=== PATIENT | female | born 1950 | race Caucasian/White ===

== ENCOUNTER → 2016-11-17 | Outpatient (CLI) | payer MEDICARE, OTHER ==
[~2016-11-17] MED LIST: CALC-652 PO; CITA-51 PO; CLOP75TA19 PO; LANS15CA9 PO; MULT-806 PO; [UNRECOGNIZED DRUG - CODE] PO; [UNRECOGNIZED DRUG - CODE] PO
== END ==
LOC: WC.BC 14:52
DX: Z12.31 Encounter for screening mammogram for malignant neoplasm of breast (principal); N64.59 Other signs and symptoms in breast; Z80.3 Family history of malignant neoplasm of breast
CPT/HCPCS: 77063; G0202

== ENCOUNTER 2017-05-21 09:10 | Inpatient (IN) ==
[~2017-05-21 09:10] MED LIST changes: +ACETAMINOPHEN 500 MG TABLET PO ONE; -CALC-652 PO; -CITA-51 PO; -CLOP75TA19 PO; +DEXAMETHASONE 4 MG/ML INJECTION IVP ONE; +EPINEPHrine PF 0.25 MG, BUPIVACAINE 0.25% PF 30 ML, MORPHINE SULFATE 15 MG, KETOROLAC I... OPSITE ONE; +FAMOTIDINE PB 20 MG/50 ML BAG IV ONE; -LANS15CA9 PO; +LIDOCAINE 1% (10mg/ml) 2mL INJ PF SDV ID ONE; +MELOXICAM 15 MG TABLET PO ONE; +METOCLOPRAMIDE 10mg/2ml INJECTION IVP ONE; -MULT-806 PO; +NOZIN NASAL SWAB NAS ONE; +ONDANSETRON 4 MG/2 ML INJECTION IVP ONE; +TRANEXAMIC ACID 1,000 MG in NS 100 ML IV ONE; -[UNRECOGNIZED DRUG - CODE] PO; -[UNRECOGNIZED DRUG - CODE] PO
[2017-05-21 09:35] VITALS: BMI 36.1
[2017-05-21] MEDS: LR 1,000 ML IV SCH ×2 (09:54→12:32)
--- NOTE | 2017-05-21 10:47 | Anesthesia Preoperative Report ---
Anesthesia Preoperative Record - Date and Time Date: 05/21/17 Preoperative Diagnosis: LT TKA M17.12 Proposed Procedure: Left TKA NPO Since Date: 05/20/17 NPO Since Time: 22:30 Allergies/Adverse Reactions: Allergies Allergy/AdvReac Type Severity Reaction Status Date / Time No Known Allergies Allergy Unverified 05/21/17 09:35 - Vital Signs Vital Signs: Temperature 97.8 F 05/21/17 09:33 Pulse Rate 66 05/21/17 09:45 Respiratory Rate 16 05/21/17 09:33 Blood Pressure 155/77 H 05/21/17 09:33 Pulse Oximetry 96 05/21/17 09:33 Height and Weight: Height 5 ft 6.5 in Weight 103.3 kg Body Mass Index 36.1 - Medications Inpatient Medications: Current Medications Lactated Ringer's (Lactated Ringers) 1,000 mls @ 50 mls/hr IV .Q20H DONALDO Last Admin: 05/21/17 09:54 Dose: 50 mls/hr Sodium Chloride (Iv Flush) 10 - 80 ml IV PRN PRN PRN Reason: Flushing Home Medications: Home Medications Medication Instructions Recorded Confirmed Type Azithromycin [Zithromax] 250 mg PO DAILY #0 03/12/11 05/21/17 History Clopidogrel Bisulfate [Plavix] 75 mg PO DAILY #0 03/12/11 05/21/17 History Levothyroxine Sodium 137 mcg PO HS #0 03/12/11 05/21/17 History Advair Diskus (Fluticasone 1 inh INH BID 03/18/17 05/21/17 History 100mcg-salmeterol 50 mcg/dose) blistr powder Pravachol (pravastatin) 20 mg 20 mg PO HS 03/18/17 05/21/17 History tablet Albuterol Neb (0.083%) [Proventil 2.5 mg AEROSOL QID PRN 04/29/17 05/13/17 History Neb (0.083%)] Albuterol Sulfate [Proair Hfa] 1 - 2 puff INH Q4HPRN PRN 04/29/17 05/13/17 History Fexofenadine [Loreto] 180 mg PO DAILY 04/29/17 05/21/17 History Lansoprazole [Prevacid] 30 mg PO BID 05/13/17 05/21/17 History Acetaminophen [Tylenol] 1,000 mg PO Q5H 05/21/17 05/21/17 History - Medical History Respiratory: Reports: Bronchitis, Other (fibrosis) DENIES: Asthma, Chronic Obstructive Pulmonary Disease (COPD), Dyspnea, Orthopnea, Pulmonary Embolism, Pneumonia, Upper Respiratory Infection, Pulmonary Edema, Sleep Apnea, Tuberculosis Cardiovascular: Reports: High Cholesterol DENIES: Abnormal EKG, Angina, Arrhythmia, Congestive Heart Failure, Coronary Artery Disease, Heart Murmur, Hypertension, Hypotension, Myocardial Infarction, Rheumatic Fever, Valvular Heart Disease, Other Gastrointestional: Reports: Gastroesophageal Reflux Disease DENIES: Obstructive Bowel, Hepatitis, Cirrhosis, Nausea or Vomiting Present, Gastrointestinal Bleeding, Hiatal Hernia, Ulcer, Morbid Obesity, Other Neuro/Musculoskeletal: Denies: HX.MS.OSAR, Back Problems, Cerebrovascular Accident, Depression, Headaches, Loss of Consciousness, Muscle Weakness, Neuromuscular Disorder, Paralysis, Paresthesia, Syncope, Seizures, Other Renal/Endocrine: Reports: Thyroid Disease DENIES: Diabetes Mellitus Type 1, Diabetes Mellitus Type 2, Renal Failure, Dialysis, Weight Loss, Weight Gain, Other Other History: DENIES: Anesthesia Reactions, Now, Blood Transfusions, Chemotherapy , Cancer, Hemophilia, Malignant Hyperthermia, Sickle Cell Disease, Other - Surgical History Respiratory Surgery/Treatments: Reports: CPAP Use GI Surgery/Treatments: Reports: Colonoscopy (polypectomy), EGD Surgery/Treatment: REPORT: Other (bladder sling) Musculoskeletal Surgery/Tx: Reports: Carpal Tunnel Release (and trigger finger ON RIGHT; CARPAL TUNNEL ON LEFT) Reproductive Surgery/Treatment: Reports: Dilation and Curettage - Social History Smoking Status: Never smoker Hx Chewing Tobacco Use: No Second Hand Exposure: No Substance Use Type: does not use Alcohol Intake: current Alcohol Intake Frequency: a few times a month - Pertinent Findings EKG: Sinus Rhythm - Physical Exam Respiratory Exam: Present: lungs clear, bilateral breath sounds equal Cardiovascular Exam: Present: regular rate and rhythm, no murmur - Airway Assessment Mallampati Score: II TMD: 3 Fingerbreadths Neck Extension: good Overall Assessment: no airway concerns - ASA ASA Score: 2 - Plan Regional/Trunk Block: Spinal Peripheral Nerve Block: Saphenous-Left - Discussion Discussion: Discussed risks/options/alternatives of anesthesia and questions answered. Patient consents. Nursing pain assessment noted. Present for Discussion: spouse Attestation Statement: Prior to the delivery of any anesthetic medication, I examined the patient, developed the plan, obtained the patient's consent and discussed the risk and benefits of the procedure with the patient/guardian. - Additional Information Seen by Anesthesia: Yes
[2017-05-21] MEDS ORDERED: VANCOMYCIN 1,000 MG INJECTION ONE (10:51)
[2017-05-21] MEDS ORDERED: FentaNYL 100 MCG/2 ML INJECTION ONE (11:29)
[2017-05-21] MEDS ORDERED: MIDAZOLAM 2mg/2ml INJECTION ONE (11:29)
[2017-05-21] MEDS ORDERED: CEFAZOLIN 2 G in NS 100 ML IV ONE (12:00)
[2017-05-21] MEDS ORDERED: VANCOMYCIN 1,000 MG INJECTION IAR ONE (12:35)
[2017-05-21] MEDS ORDERED: CEFAZOLIN 1 G INJECTION IV ONE (12:45)
--- NOTE | 2017-05-21 13:08 | Operative Note ---
- Procedure Preoperative Diagnosis: Left knee primary degenerative joint disease Postoperative Diagnosis: Same as preoperative diagnosis. Surgeon: Jose Ko MD Heavy Equipment Operating Engineer: Russell Meeks Complications: None. Anesthesia: Spinal. Estimated Blood Loss: See Anesthesia Record. Fluids: Please see Anesthesia Record. Description of Procedure: Mrs. Moreno and her left knee were identified and marked in the preoperative holding area. She was brought back to the operating suite after a saphenous nerve block was placed in the preoperative holding area. Spinal anesthetic was administered and she was placed supine on the operating table. The left lower extremity was prepped and draped in my normal sterile fashion. Timeout was performed. The [employer] robot was used during the surgery. She had a correctable valgus deformity with no flexion contracture. A standard anterior midline incision followed by medial parapatellar arthrotomy was performed. Anterior fat pad and meniscus were removed. The patella was resurfaced to a size 32. She had significant wear both in the lateral and the medial compartment. The medial tibial plateau was relatively spared as was the posterior condyle of the medial side. Tibial and femoral arrays were placed both within the original incision. Checkpoints were then placed both in the femur and the tibia. The bone was then registered with the [employer] robot. Osteophytes were removed and gaps were captured both 90 and 0 with correction. We manipulated her components using the [employer] software to achieve 17 mm gaps in extension and 18 mm gaps in flexion. The [employer] robotic arm was then used to assist with the bone cuts. Posterior osteophytes and remaining meniscus were removed. Trial components were placed. We used a 3 femur and a 3 tibia with a 9 mm spacer. She tracked well and was well balanced throughout range of motion. The leg was exsanguinated and the tourniquet inflated to 250 mmHg. The bone was prepared for cementing and components were cemented into place and allowed to cure in extension. The tourniquet was let down and hemostasis obtained with electrocautery. The knee was ranged one more time to ensure good stability, balance and patellar tracking. 1 g of vancomycin powder was then placed into the knee joint. The capsulotomy was then closed with #1 Vicryl. I then left my assisted living assistant to close the subcutaneous tissue with 2-0 Vicryl. Running 4-0 Monocryl will be used in the subcuticular layer. Dermabond will be used on the skin followed by sterile dressing. After drapes are removed patient will be taken to recovery room under the care of anesthesia.
[2017-05-21] MEDS ORDERED: ROPIVACAINE 0.5% (5mg/ml) 30ml INJ ONE (13:47)
--- NOTE | 2017-05-21 13:52 | Anesthesia Procedure Note ---
Peripheral Nerve Blockade - Procedure Physician: Luiz Ko MD Date: 05/21/17 Surgical Procedure: Left TKA Discussion: Discussed risks/options/alternatives of anesthesia and questions answered. Patient consents. Nursing pain assessment noted. Block Start: 13:45 Block Stop: 13:50 Blocked Employed: Adductor Canal Indication: Post-Operative Pain Approach: Left Side Confirmed Position: Supine Patient: Consent, Risks/Benefits Discussed, Informed, Post Block Act. Discussed IV Sedation: No (spinal intact) Initial Vital Signs: Temperature 97.8 F 05/21/17 09:33 Temperature Source Oral 05/21/17 09:33 Pulse Rate 69 05/21/17 09:33 Respiratory Rate 16 05/21/17 09:33 Blood Pressure 155/77 H 05/21/17 09:33 Blood Pressure Mean 103 05/21/17 09:33 Blood Pressure Position Sitting 05/21/17 09:33 Pulse Oximetry 96 05/21/17 09:33 Oxygen Delivery Method 05/21/17 09:33 Post Vital Signs: Temperature 97.8 F 05/21/17 09:33 Pulse Rate 66 05/21/17 09:45 Respiratory Rate 16 05/21/17 09:33 Blood Pressure 155/77 H 05/21/17 09:33 Pulse Oximetry 96 05/21/17 09:33 Initial Pain Pain Score: 0 Post Block Pain Score: 0 Prep: Chlorhexadine/ETOH Ultrasound Used?: Yes - Injectate Ropivacaine (%): 0.5 Ropivacaine (mL): 15 Was Epi 1:200,000 Used?: No Injection: Injection made incrementally with constant monitoring and aspiration every ml
[2017-05-21] MEDS ORDERED: DiphenhydrAMINE 25 MG CAPSULE PO PRN (14:24)
[2017-05-21] MEDS ORDERED: NOZIN NASAL SWAB NAS ONE (14:24)
[2017-05-21] MEDS ORDERED: ONDANSETRON 4 MG/2 ML INJECTION IVP PRN (14:24)
[2017-05-21] MEDS ORDERED: LORazepam 1 MG TABLET PO PRN (14:24)
[2017-05-21] MEDS ORDERED: ALBUTEROL 2.5mg/3ml (0.083%) NEB AEROSOL PRN (14:24)
[2017-05-21] MEDS ORDERED: DiphenhydrAMINE 50 MG/ML INJECTION IVP PRN (14:24)
[2017-05-21] MEDS ORDERED: FALL RISK - PHARMACY CONSULT XX ONE (14:49)
[2017-05-21] MEDS: NOZIN NASAL SWAB NAS SCH ×3 (15:11→21:41)
[2017-05-21] MEDS: NS 1,000 ML IV SCH (15:11)
--- NOTE | 2017-05-21 15:18 | XRay Report ---
Indication: postoperative image PROCEDURE: XR knee LT 2V: Encounter: Initial Comparison: March 18, 2017 Findings: Postoperative changes of left total knee replacement are seen. There is expected postoperative subcutaneous gas. No evidence of hardware failure or acute fracture. No retained radiopaque surgical instruments or sponges. Overlying material causing artifact. Impression: New left total knee prosthesis without evidence of immediate complication. .
[2017-05-21] MEDS: TRAMADOL 50 MG TABLET PO PRN (16:10)
[2017-05-21] MEDS ORDERED: DEXAMETHASONE 4 MG/ML INJECTION IVP SCH (18:00)
[2017-05-21] MEDS: ACETAMINOPHEN 325 MG TABLET PO SCH ×2 (18:20→20:00)
[2017-05-21] MEDS ORDERED: SALINE FLUSH 10ml SYRINGE IV PRN (18:21)
[2017-05-21] MEDS: DEXAMETHASONE 4 MG/ML INJECTION IVP SCH (19:50)
[2017-05-21] MEDS: CEFAZOLIN 2 G in NS 100 ML IV SCH (19:57)
[2017-05-21] MEDS: DOCUSATE SODIUM 100 MG CAPSULE PO SCH (19:59)
[2017-05-21] MEDS: PANTOPRAZOLE 40 MG TABLET PO SCH (20:00)
[2017-05-21] MEDS: ASPIRIN *EC* 81 MG TABLET PO SCH (20:00)
[2017-05-21] MEDS ORDERED: PRAVASTATIN 20 MG TABLET PO SCH (21:00)
[2017-05-21] MEDS ORDERED: SENNOSIDES 8.6 MG TABLET PO SCH (21:00)
[2017-05-21] MEDS ORDERED: LEVOTHYROXINE 137 MCG TABLET PO SCH (21:00)
[2017-05-22] MEDS: DEXAMETHASONE 4 MG/ML INJECTION IVP SCH (03:25)
[2017-05-22] MEDS: CEFAZOLIN 2 G in NS 100 ML IV SCH (03:28)
[2017-05-22] MEDS: NS 1,000 ML IV SCH (03:29)
[2017-05-22] MEDS: PANTOPRAZOLE 40 MG TABLET PO SCH (06:01)
[2017-05-22] MEDS: NOZIN NASAL SWAB NAS SCH (06:01)
[2017-05-22] MEDS: DOCUSATE SODIUM 100 MG CAPSULE PO SCH (08:55)
[2017-05-22] MEDS: ACETAMINOPHEN 325 MG TABLET PO SCH (08:56)
[2017-05-22] MEDS: ASPIRIN *EC* 81 MG TABLET PO SCH (08:57)
[2017-05-22] MEDS ORDERED: FEXOFENADINE 180 MG TABLET PO SCH (09:00)
[2017-05-22] MEDS ORDERED: POLYETHYL GLYCOL 3350 17gm PACKET PO SCH (09:00)
[2017-05-22] MEDS ORDERED: CLOPIDOGREL 75 MG TABLET PO SCH (09:00)
--- NOTE | 2017-05-22 09:27 | Orthopedic Progress Note ---
Date: Subjective/Severity of Illness: Felicia has some underlying respiratory dz but is feeling good this AM. Sats are good. Pain is controlled. SHe has been mobile with good tolerance. No breathing or CV complaints this AM. Orthopedic Objective PO Vital signs: Temperature 98.3 F 05/22/17 07:53 Pulse Rate 83 05/22/17 07:53 Respiratory Rate 18 05/22/17 09:04 Blood Pressure 136/67 05/22/17 07:53 Pulse Oximetry 97 05/22/17 07:53 Height and Weight: Height 5 ft 6.5 in Weight 227 lb 11.8 oz Body Mass Index 36.1 - Constitutional General Appearance: Present: alert, no acute distress - Cardiovascular Exam Present: pedal pulses intact - Extremities Exam Extremities: Present: pulses intact. Absent: calf tenderness - Surgical Site Incision: Mepilex dressing intact, no drainage - Neurological Exam Present: no deficits - Psychiatric Exam Present: alert, normal affect - Labs Result Diagrams: 05/22/17 03:59 05/22/17 03:59 Abnormal lab results 05/22/17 05/22/17 Range/Units 03:59 03:59 RBC 3.98 L (4.00-5.20) M/MM3 Glucose 147 H (65-110) MG/DL H & H 05/22/17 Range/Units 03:59 Hgb 12.4 (12-16) GM/DL Hct 37.9 (36-46) % Orthopedic Assessment and Plan (1) Primary osteoarthritis of left knee Status: Acute Assessment and Plan: Current anti-coagulation protocol for VTE prophylaxis. SCD's. PT/OT services to improve independent function. Discharge Planning per Case Management. - Anticoagulation Therapy Anticoagulation: ASA 81 mg PO BID x6 weeks Hospital Course Summary Disclaimer: The visit summary below is not to be considered part of the above Progress Note.
[2017-05-22] MEDS: TRAMADOL 50 MG TABLET PO PRN (10:18)
--- NOTE | 2017-05-22 10:36 | Discharge Summary ---
Orthopedic Discharge Info Date of admission: 05/21/17 09:10 Primary care physician: Rina Ruby Attending Physician: Luiz Ko MD Consults: 05/21/17 09:32 Consult to Anesthesiology [CONS] Routine Consulting Provider: DEISY Flynn Reason For Exam: Preoperative Assessment 05/21/17 14:24 Case Management Consult [CONS] Routine Reason For Exam: Discharge Planning DME-Walker [CONS] Routine Height: 5 ft 6.5 in Weight: 227 lb 11.8 oz Comment: change dressing in 2 weeks Total Joint Outpatient Therapy [CONS] Routine Comment: change dressing in 2 weeks - Discharge Diagnosis (1) Primary osteoarthritis of left knee Status: Acute - Procedures Procedures: Left TKA - Laboratory Result Diagrams: 05/22/17 03:59 05/22/17 03:59 Laboratory: Abnormal lab results 05/22/17 05/22/17 Range/Units 03:59 03:59 RBC 3.98 L (4.00-5.20) M/MM3 Glucose 147 H (65-110) MG/DL H & H 05/22/17 Range/Units 03:59 Hgb 12.4 (12-16) GM/DL Hct 37.9 (36-46) % Orthopedic Discharge HPI - HPI Comments After appropriate preoperative clearance and signing of operative consent, the patient was given IV antibiotics, according to orthopedic protocol. The patient was taken to the operating room and underwent elective joint arthroplasty. Following surgery, antibiotics were discontinued less than 24 hours according to joint protocol. Appropriate anticoagulants were initiated and SCDs added for DVT prevention. The dressing was clean, dry, and intact. Pain control was obtained via multimodal approach. Bowel motivation addressed with scheduled and PRN medications. Early mobilization was initiated through PT services. Discharge arrangements made by a collaborative effort between the patient and Case Management. Follow-up is scheduled in 2-3 weeks. Discharge instructions given by orthopedic providers and nursing staff at discharge. Discharge condition was good. Orthopedic Hospital Course Hospital course: 05/22/17 10:34 After appropriate preoperative clearance and signing of operative consent, the patient was given IV antibiotics, according to orthopedic protocol. The patient was taken to the operating room and underwent elective joint arthroplasty. Following surgery, antibiotics were discontinued less than 24 hours according to joint protocol. Appropriate anticoagulants were initiated and SCDs added for DVT prevention. The dressing was clean, dry, and intact. Pain control was obtained via multimodal approach. Bowel motivation addressed with scheduled and PRN medications. Early mobilization was initiated through PT services. Discharge arrangements made by a collaborative effort between the patient and Case Management. Follow-up is scheduled in 2-3 weeks. Discharge instructions given by orthopedic providers and nursing staff at discharge. Discharge condition was good. Ongoing care required?: No Discharge Plan - Med Rec/Dispo Referrals/Follow Up: Luiz Ko MD [Physician] - 06/15/17 10:45 am Ediuvgarret Inst[place]: [facility] [place] Additional Instructions: [facility] ON 05/25/2017 AT 8:45AM FOR PHYSICAL THERAPY EVAL. PHONE Prescriptions: New Acetaminophen [Tylenol] 650 mg PO QID #100 tablet Aspirin *EC* [Ecotrin] 81 mg PO BID #0 tablet PEG 3350 17gm PACKET [Miralax] 17 gm PO DAILY #30 packet Tramadol [Ultram] 50 - 100 mg PO Q6H PRN #60 tab PRN Reason: Pain Continue Clopidogrel Bisulfate [Plavix] 75 mg PO DAILY #0 Levothyroxine Sodium 137 mcg PO HS #0 Albuterol Neb (0.083%) [Proventil Neb (0.083%)] 2.5 mg AEROSOL QID PRN PRN Reason: Wheezing Azithromycin [Zithromax] 250 mg PO DAILY #0 Albuterol Sulfate [Proair Hfa] 1 - 2 puff INH Q4HPRN PRN PRN Reason: Shortness Of Air/Wheezing Fexofenadine [Loreto] 180 mg PO DAILY Lansoprazole [Prevacid] 30 mg PO BID Advair Diskus (Fluticasone 100mcg-salmeterol 50 mcg/dose) blistr powder 1 inh INH BID Pravachol (pravastatin) 20 mg tablet 20 mg PO HS Discontinued Acetaminophen [Tylenol] 1,000 mg PO Q5H - Disposition 01 Discharged Home, Self-Care
[2017-05-22 12:17] VITALS: BP 133/72; PULSE 80; RESP 16; TEMP 98.1; O2SAT 99
[2017-05-22] MEDS ORDERED: SENNOSIDES 8.6 MG TABLET PO PRN (13:36)
[2017-05-23] MEDS ORDERED: BISACODYL 10 MG SUPPOSITORY RECTALLY SCH (20:00)
== END 2017-05-22 12:20 | disposition home or self-care (01) | DRG 470 ==
LOC: SRG 09:10
PROVIDERS: ADMIT Orthopaedic Surgery; ATTEND Orthopaedic Surgery